=== PATIENT | female | born 1975 | race Caucasian/White ===

== ENCOUNTER 2021-02-26 13:16 | Emergency (ER) | payer OTHER ==
[2021-02-26] MEDS ORDERED: DUONEB 0.5-3 MG/3 ml Neb IH ONE (13:19)
[2021-02-26] MEDS: DUONEB 0.5-3 MG/3 ml Neb IH ONE (13:23)
[2021-02-26] MEDS ORDERED: DELTASONE 20 MG ONE (13:39)
[2021-02-26] MEDS: DELTASONE 20 MG PO ONE (13:40)
--- NOTE | 2021-02-26 13:55 | XRAY ---
Indication: Short of breath. Comparison: March 11, 2015. Portable chest again demonstrates normal heart, lungs, and bony thorax with incidental left mid lung calcified granuloma.
[2021-02-26 13:58] LABS: Absolute Neutrophil Ct (ANC) 4.56 (1.4-6.9); BASOPHIL % 0.4 % (0.0-0.4); Basophil (Absolute #) 0.03 (0-0.4); Eosinophil % 12.4 % (0.00-5.0); Eosinophil (Absolute #) 0.91 (0-0.5); Hematocrit 44.3 % (35-47); Hemoglobin 14.5 gm/dl (12.0-16.0); Lymphocyte (Absolute #) 1.27 (1.0-4.6); Lymphocytes % 17.3 % (24.0-44.0); Mean Cell Volume 99.6 fl (78-100); Mean Corpuscular Hemoglobin 32.6 pg (26-32); Mean Corpuscular Hgb Concent. 32.7 g/dl (32-36); Mean Platelet Volume 8.9 fl (7.5-11.0); Monocyte (Absolute #) 0.58 (0.0-1.3); Monocytes % 7.9 % (0.0-12.0); Platelet Count 374 K/mm3 (150-450); Red Blood Count 4.45 M/mm3 (4.1-5.4); Red Cell Distribution Width 14.1 % (11.5-14.0); White Blood Count 7.4 K/mm3 (4.0-10.5)
[2021-02-26 14:20] VITALS: BP 111/82
[2021-02-26 14:28] LABS: ALBUMIN 4.6 g/dL (3.5-5.0); ALKALINE PHOSPHATASE 48 U/L (38-126); ANION GAP 11.4 MEQ/L (5-15); BLOOD UREA NITROGEN 6 mg/dL (7-17); CHLORIDE 106 mmol/L (98-107); Calcium 9.5 mg/dL (8.4-10.2); Carbon Dioxide 25 mmol/L (22-30); Creatinine 1 0.73 mg/dL (0.52-1.04); EST GLOMERULAR FILTRATION RATE > 60.0 ML/MIN; Glucose 93 mg/dL (74-106); MAGNESIUM 1.8 mg/dL (1.6-2.3); Potassium 4.3 mmol/L (3.5-5.1); SGOT/AST 34 U/L (14-36); SGPT/ALT 21 U/L (0-35); SODIUM 139 mmol/L (137-145); Total Protein 7.3 g/dL (6.3-8.2)
--- NOTE | 2021-02-26 14:54 | ERPHSYRPT ---
- History of Present Illness Time Seen by Provider: 02/26/21 13:17 Source: patient Exam Limitations: no limitations Patient Subjective Stated Complaint: PT states "I thought I might be getting bronchitis because I have chronic bronchitis so I went to [facility] and I have used my nebulizer 6 times today with no help." Triage Nursing Assessment: PT presented alert and oriented X 3, skin wpd pt able to speak in four to five word sentences pt tachypneic breathing through pused lips. Physician History: 45 years old female with history of COPD, tobacco abuse presented in the ER with 2-3 days history of worsening cough, wheezing and shortness of breath despite using her inhaler/nebulizer as recommended. Patient reports worsening of wheezing and some chest soreness because of repeated coughing episodes. She is coughing up minimal clear sputum without hemoptysis. Subjective feeling of fever and chills. Patient was seen at [facility] and sent in here for further evaluation. Timing/Duration: day(s) (3), constant, gradual onset, worse Activities at Onset: activity, rest Severity of Dyspnea-Max: moderate Severity of Dyspnea-Current: moderate Possible Cause: occasional episodes, frequent episodes Modifying Factors: Improves With: albuterol nebulizer, rest. Worsens With: coughing, exertion Associated Symptoms: anxiety, cough, chest pain/discomfort, weakness, productive cough, tightness Allergies/Adverse Reactions: Penicillins Allergy (Verified 03/11/15 14:38) venom-honey bee [bee venom (honey bee)] Allergy (Verified 03/11/15 14:38) Home Medications: No Home Meds [No Home Meds] 1 ea UD 03/11/15 [History] Albuterol Sulfate [Proair Respiclick] 90 mcg IH DAILY PRN 02/26/21 [History] Hx Tetanus, Diphtheria Vaccination/Date Given: Yes Hx Influenza Vaccination/Date Given: Yes Hx Pneumococcal Vaccination/Date Given: No Immunizations Up to Date: Yes Travel Risk - International Travel Have you traveled outside of the country in past 3 weeks: No - Coronavirus Screening Are you exhibiting any of the following symptoms?: No Close contact with a COVID-19 positive Pt in past 14-21 Days: No - Vaccine Status Have you recieved a Covid-19 vaccination: No - Review of Systems Constitutional: Fever Eyes: No Symptoms Ears, Nose, & Throat: Nose Congestion Respiratory: Cough, Dyspnea, Wheezing Cardiac: Chest Pain Abdominal/Gastrointestinal: No Symptoms Genitourinary Symptoms: No Symptoms Musculoskeletal: Myalgias Skin: No Symptoms Neurological: No Symptoms Psychological: Anxiety Endocrine: No Symptoms Hematologic/Lymphatic: No Symptoms Immunological/Allergic: No Symptoms - Past Medical History Pertinent Past Medical History: Yes Respiratory History: Bronchitis - Past Surgical History Past Surgical History: Yes Female Surgical History: Section - Social History Smoking Status: Current every day smoker Exposure to second hand smoke: Yes Drug Use: none Patient Lives Alone: No - Female History Hx Last Menstrual Period: 02/20/2021 Hx Now: (unkn) - Nursing Vital Signs Nursing Vital Signs: Initial Vital Signs Temperature 98.3 F 02/26/21 13:16 Pulse Rate 96 H 02/26/21 13:16 Respiratory Rate 28 H 02/26/21 13:16 Blood Pressure 129/99 02/26/21 13:16 O2 Sat by Pulse Oximetry 94 L 02/26/21 13:16 Pain Scale Pain Intensity 0 - Physical Exam General Appearance: no apparent distress, alert, anxiety Eye Exam: PERRL/EOMI, eyes nml inspection Ears, Nose, Throat Exam: hearing grossly normal, pharyngeal erythema Neck Exam: normal inspection, non-tender, supple, full range of motion Respiratory Exam: wheezing, No respiratory distress, No accessory muscle use Cardiovascular/Chest Exam: normal heart sounds, regular rate/rhythm Abdominal/Gastrointestinal Exam: soft, No tenderness Extremity Exam: non-tender, normal range of motion, normal inspection, normal capillary refill Neurologic Exam: alert, oriented x 3, cooperative Skin Exam: normal color SpO2 Interpretation: normal SpO2: 96 O2 Delivery: Room Air Ordered Tests: Active Orders 24 hr Category Date Time Status Pressroom Foreman STAT Care 02/26/21 13:34 Completed EKG-ER Only STAT Care 02/26/21 13:33 Completed CHEST 1 VIEW (PORTABLE) Stat Exams 02/26/21 13:33 Completed CBC W DIFF Stat Lab 02/26/21 13:56 Completed CMP Stat Lab 02/26/21 13:56 Completed MAGNESIUM Stat Lab 02/26/21 13:56 Completed NT PRO BNP Stat Lab 02/26/21 13:56 Completed TROPONIN Q3H Lab 02/26/21 13:56 Completed TROPONIN Q3H Lab 02/26/21 16:45 Ordered TROPONIN Q3H Lab 02/26/21 19:45 Ordered TROPONIN Q3H Lab 02/26/21 22:45 Ordered Respiratory Therapy Assessment DAILY RT 02/26/21 13:49 Completed Medication Summary Discontinued Medications Generic Name Dose Route Start Last Admin Trade Name Nathan PRN Reason Stop Dose Admin Albuterol/Ipratropium Confirm 02/26/21 13:19 Ipratropium/Albuterol Sulfate 3 Ml Ampul.Neb Administered 02/26/21 13:20 Dose 3 ml IH .STK-MED ONE Albuterol/Ipratropium 3 ml 02/26/21 13:33 02/26/21 13:23 Ipratropium/Albuterol Sulfate 3 Ml Ampul.Neb IH 02/26/21 13:34 3 ml STAT ONE Administration Prednisone 60 mg 02/26/21 13:33 02/26/21 13:40 Prednisone 20 Mg Tablet PO 02/26/21 13:34 60 mg STAT ONE Administration Prednisone Confirm 02/26/21 13:39 Prednisone 20 Mg Tablet Administered 02/26/21 13:40 Dose 60 mg .ROUTE .STK-MED ONE Lab/Rad Data: Laboratory Result Diagrams 02/26/21 13:56 02/26/21 13:56 Laboratory Results 02/26/21 02/26/21 02/26/21 Range/Units 13:56 13:56 13:56 WBC 7.4 (4.0-10.5) K/mm3 RBC 4.45 (4.1-5.4) M/mm3 Hgb 14.5 (12.0-16.0) gm/dl Hct 44.3 (35-47) % MCV 99.6 (78-100) fl MCH 32.6 H (26-32) pg MCHC 32.7 (32-36) g/dl RDW 14.1 H (11.5-14.0) % Plt Count 374 (150-450) K/mm3 MPV 8.9 (7.5-11.0) fl Gran % 62.0 (36.0-66.0) % Eos # (Auto) 0.91 H (0-0.5) Absolute Lymphs (auto) 1.27 (1.0-4.6) Absolute Monos (auto) 0.58 (0.0-1.3) Lymphocytes % 17.3 L (24.0-44.0) % Monocytes % 7.9 (0.0-12.0) % Eosinophils % 12.4 H (0.00-5.0) % Basophils % 0.4 (0.0-0.4) % Absolute Granulocytes 4.56 (1.4-6.9) Basophils # 0.03 (0-0.4) Sodium 139 (137-145) mmol/L Potassium 4.3 (3.5-5.1) mmol/L Chloride 106 (98-107) mmol/L Carbon Dioxide 25 (22-30) mmol/L Anion Gap 11.4 (5-15) MEQ/L BUN 6 L (7-17) mg/dL Creatinine 0.73 (0.52-1.04) mg/dL Estimated GFR > 60.0 ML/MIN Glucose 93 (74-106) mg/dL Calcium 9.5 (8.4-10.2) mg/dL Magnesium 1.8 (1.6-2.3) mg/dL Total Bilirubin 0.80 (0.2-1.3) mg/dL AST 34 (14-36) U/L ALT 21 (0-35) U/L Alkaline Phosphatase 48 (38-126) U/L Troponin I < 0.012 (0.000-0.034) ng/mL NT-Pro-B Natriuret Pep 59.0 (0-450) pg/mL Serum Total Protein 7.3 (6.3-8.2) g/dL Albumin 4.6 (3.5-5.0) g/dL - Progress Progress: improved, re-examined Air Movement: good Progress Note: 02/26/21 14:53 She is given breathing treatment and steroids, on reevaluation feeling better. Chest x-ray negative for any acute finding, baseline work-up grossly unremarkable. I believe patient has COPD exacerbation, will put on doxycycline and a short course of steroid, outpatient follow-up. Discussed signs symptoms of worsening needing return to ER which she seems understanding. Blood Culture(s) Obtained: No Antibiotics given: Yes Counseled pt/family regarding: lab results, diagnosis, need for follow-up, rad results, smoking cessation - Departure Departure Disposition: Home Clinical Impression: COPD exacerbation Condition: Stable Critical Care Time: No Referrals: [facility] [employer] [facility] [Primary Care Provider] - Follow up/PCP as directed (In 2 days for reevaluation) Instructions: Chronic Obstructive Pulmonary Disease, Exacerbation of COPD (DC) Additional Instructions: Cut down on your smoking. Use neb treatments every 4-6 hourly. Follow-up with primary care for reevaluation. Return to ER for any worsening. Prescriptions: Prednisone 20 mg [Deltasone 20 mg] 60 mg PO DAILY 5 Days #15 tablet Albuterol/Ipratropium 3ml Neb* [DUONEB 0.5-3 MG/3 ml Neb] 3 ml IH Q4-6HPRN PRN 15 Days #60 PRN Reason: Shortness Of Breath Doxycycline Hyclate 100 mg [Vibramycin 100 MG] 100 mg PO BID #14 tab
[2021-02-26 15:04] VITALS: PULSE 88
[2021-02-26 15:09] VITALS: O2SAT 96
== END 2021-02-26 15:05 | disposition home or self-care (01) ==
LOC: ED 13:16
DX: J44.1 Chronic obstructive pulmonary disease with (acute) exacerbation (principal); R06.00 Dyspnea, unspecified; Z72.0 Tobacco use; R05.9 Cough, unspecified; Z79.52 Long term (current) use of systemic steroids
CPT/HCPCS: 36415; 71045; 80053; 83735; 83880; 84484; 85025; 93005; 93041; 94640; 99284; A9270-GY